=== PATIENT | female | born 1950 | race Caucasian/White ===

== ENCOUNTER 2016-12-18 05:59 | Day surgery (SDC) | payer OTHER ==
[~2016-12-18] VITALS: Ht 172.7 cm; Wt 107.1 kg
[2016-12-18] VITALS (8 sets, daily range): BP systolic 139–180; BP diastolic 46–83
--- NOTE | ~2016-12-18 | EKG ---
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
--- NOTE | ~2016-12-18 | S ---
[facility] [address] [place] [address] SURGICAL PATH RPT PROCEDURE Name: ZORAN TOMAS Room #: DEP [facility]..#: [id number] Admission: 12/18/16 Date of : 50 Discharge: 12/19/16 Report #: [id number] Path Case #: [id number] PATHOLOGY REPORT COLLECTION DATE: 12/18/2016 RECEIVED DATE: 12/19/2016 SUBMITTING PHYS: Dr. Therese Quintana OTHER PHYS: Dr. Raffi Anthony ADDENDUM REPORT (Order Date: 12/23/2016 11:48) ADDENDUM COMMENT: The immunoperoxidase stain for Helicobacter pylori is negative. (SHA:garrett; 12/23/2016) Professional services performed by [facility] at [facility] [address] [place] [address] Technical services performed by [facility] at [address] [place] [address], [address] [place] [address]. ELECTRONICALLY SIGNED BY: Marcelo Akins M.D. DATE/TIME:12/23/2016 12:47 SPECIMEN(S) RECEIVED: A.Gastric band and port B.Gastric sleeve * * * * * * * * * * * * FINAL DIAGNOSIS: A. Gastric port and band (gross diagnosis only). B. 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 (see comment) COMMENT: An immunoperoxidase stain for Helicobacter pylori will be done on block A2, and an additional report will follow. (SHA:mgr; 12/22/2016) PATHOLOGIST: Marcelo Akins M.D. REPORT ELECTRONICALLY SIGNED BY: Marcelo Akins M.D. DATE/TIME: 12/22/2016 12:55 * * * * * * * * * * * * [address] [address] SURGICAL PATH RPT PROCEDURE Name: ZORAN TOMAS Room #: DEP [facility]#: [id number] Admission: 12/18/16 Date of : 50 Discharge: 12/19/16 Report #: [id number] Path Case #: [id number] GROSS PATHOLOGY: A. The specimen is received in formalin, labeled "Zoran Tomas, gastric port and band". Received is an adjustable laparoscopic band measuring 5.1 x 5.1 x 2.1 cm with attached white tubing measuring 43.3 cm in length by 0.4 cm in diameter, and separately submitted port measuring 3.0 x 3.0 x 1.6 cm. The back of the port is inscribed with "Port-A-Cath" and "[id number]". A gross photograph is taken. Sections are not submitted. B. The specimen is received in formalin, labeled "Zoran Tomas, gastric sleeve". Received is a partial gastrectomy specimen with a stapled margin of resection measuring 22.3 x 6.1 x 3.1 cm in greatest dimensions. The serosal surface is pink-royal to pink-bazzi and glistening in appearance. Opening the specimen reveals a light royal, cerebriform-appearing mucosa with moderate architectural folds in. Several possible polyps are present ranging in size from 0.2 to 0.3 cm. The specimen is submitted representatively in cassettes B1 through B3, to include possible polyps. (CAA; 12/20/2016) CLINICAL HISTORY: Morbid obesity, LAP-BAND in place INITIAL CPT CODE(S): A; 44165 B; 36558, 41517 Professional services performed by [facility] at [facility] [address], [place] [address] Technical services performed by [employer] at [address] [place] [address], [address], [place] [address]. [facility] [place] [address] PHONE: [phone] DIRECTOR: Wellington Marina M.D. * * * END OF REPORT * * *
[~2016-12-18 05:59] MED LIST: COUMADIN 5 MG TA5 M1 PO; CRESTOR20 MG PO; DILAUDID4 MG PO; ENOXAPARIN120 MG/0.1 SUBQ; LISINOPRIL20 MG PO; MOVANTIK25 MG PO; MULTIVITAMINS PO
[2016-12-18 10:44] LABS: HEMATOCRIT 40.3 % (37.0-47.0); HEMOGLOBIN 13.1 gm/dL (12.0-15.0)
[2016-12-18 11:03] LABS: PROTIME 10.5 Seconds (9.3-11.4)
[2016-12-19 00:40] VITALS: BP 179/79
[2016-12-19 04:20] VITALS: BP 131/56
[2016-12-19 06:22] LABS: HEMATOCRIT 36.3 % (37.0-47.0); HEMOGLOBIN 11.7 gm/dL (12.0-15.0); MCH 26.8 pg (26.0-34.0); MCHC 32.1 g/dL (28.0-37.0); MCV 83.5 fL (80.0-100.0); RBC 4.34 mil/uL (4.20-5.00); RDW 14.3 % (10.5-14.5)
[2016-12-19 06:40] LABS: CALCIUM 9.1 mg/dL (8.5-10.1); CREATININE 1.1 mg/dL (0.6-1.0); POTASSIUM 4.5 mmol/L (3.5-5.1)
[2016-12-19 07:27] VITALS: BP 140/58
[2016-12-19 09:15] VITALS: BP 140/58
== END 2016-12-19 10:36 | disposition home or self-care (01) ==
LOC: TBA 05:59 → OR 05:59 → TBA 06:00 → GI 09:56 → OR 14:31 → EDSTATUS 14:55 → OR 15:03 → 5S 19:13 → 4S 12-19 00:48 → OR 12-19 10:36
PROVIDERS: Surgery
DX: E66.01 Morbid (severe) obesity due to excess calories (principal); K43.0 Incisional hernia with obstruction, without gangrene; K44.9 Diaphragmatic hernia without obstruction or gangrene; K66.0 Peritoneal adhesions (postprocedural) (postinfection); I10 Essential (primary) hypertension; E78.00 Pure hypercholesterolemia, unspecified; K21.9 Gastro-esophageal reflux disease without esophagitis; M54.5 Low back pain; E11.9 Type 2 diabetes mellitus without complications; M79.662 Pain in left lower leg; M79.661 Pain in right lower leg; M25.50 Pain in unspecified joint; R53.83 Other fatigue; Z68.35 Body mass index [BMI] 35.0-35.9, adult; Z98.890 Other specified postprocedural states; Z79.899 Other long term (current) drug therapy; Z90.710 Acquired absence of both cervix and uterus; Z90.49 Acquired absence of other specified parts of digestive tract; Z87.442 Personal history of urinary calculi; Z96.652 Presence of left artificial knee joint; Z86.718 Personal history of other venous thrombosis and embolism; Z46.51 Encounter for fitting and adjustment of gastric lap band
CPT/HCPCS: 50010; 50101; 50222; 50249; 50386; 50555; 50558; 50739; 50740; 50962; 51437; 51489; 52182; 52265; 53307; 53311; 54022; 54118; 54124; 55326; 56462; 56525; 56526; 56531; 57092; 62110; 62900; 70005

== ENCOUNTER → 2017-03-02 | Outpatient (CLI) | payer OTHER | LOC: RAD 01:02 | DX: Z12.31 Encounter for screening mammogram for malignant neoplasm of breast (principal) ==

== ENCOUNTER → 2017-10-13 | Outpatient (CLI) | payer OTHER ==
[~2017-10-13] VITALS: Ht 172.7 cm; Wt 90.7 kg
[~2017-10-13] MED LIST changes: +CARAFATE1 GM/10 ML PO; +DILAUDID 4 MG TA4 M1 PO; +ENOXAPARIN80 MG/0.1 SUBQ; +OMEPRAZOLE 20 M20 M1 PO; +XANAX 0.5 MG0.5 MG PO
--- NOTE | ~2017-10-13 | O ---
[facility] [place] [address] [place] [address] OPERATIVE REPORT Name: ZORAN CAAL [id number] Admission: 10/13/17 Attend Phys: Therese Quintana MD, Discharge: Date of : 50 Report #: [id number] THIS REPORT FOR: //name// CC: Therese Anthony DATE OF SERVICE: 10/13/2017 PREOPERATIVE DIAGNOSES: 1. Gastroesophageal reflux disease. 2. History of laparoscopic sleeve gastrectomy. 3. Type 2 diabetes mellitus. 4. Hypertension. 5. Hypercholesterolemia. 6. Morbid obesity with a body mass index of 31.47. POSTOPERATIVE DIAGNOSES: 1. Gastroesophageal reflux disease. 2. History of laparoscopic sleeve gastrectomy. 3. Type 2 diabetes mellitus. 4. Hypertension. 5. Hypercholesterolemia. 6. Morbid obesity with a body mass index of 31.47. 7. Small to moderate hiatal hernia. PROCEDURE PERFORMED: Thorough esophagogastroduodenoscopy (EGD). SURGEON: Therese Quintana M.D. SHREDDER OPERATOR: None. ANESTHESIA: Monitored anesthesia care. ESTIMATED BLOOD LOSS: None. COMPLICATIONS: None. SPECIMENS: None. INDICATIONS: The patient is a 67-year-old female who is approximately 8 months status post a laparoscopic sleeve gastrectomy with a weight loss of approximately 50 pounds thus far. Overall, the patient is feeling well; however, has had worsening GERD over the recent past that has been medically recalcitrant. The patient did receive an upper GI swallow, which showed a moderate hiatal hernia with reflux to the level of the upper esophagus and she received esophageal manometry testing showing normal esophageal motility. [facility] [place] [address] [place] [address] OPERATIVE REPORT Name: ZORAN CAAL Room #: REG [facility].#: [id number] Admission: 10/13/17 Attend Phys: Therese Quintana MD, Discharge: Date of : 50 Report #: [id number] the patient has changes of reflux with normal motility, indication was for an EGD today to complete her upper GI workup prior to proceeding with any antireflux procedure. PROCEDURE: After explaining the risks, benefits and alternatives of the procedure with the patient in detail in the preoperative holding area and obtaining written consent, the patient was brought to the endoscopy suite supine on her hospital cart. After conducting a thorough timeout procedure, verifying correct patient and procedure, the patient was given monitored anesthesia care. Once adequate anesthesia was obtained, her SCDs were hooked up to pneumatic compression device and the [employer] upper endoscope was used to intubate the oropharynx and was traversed down into the esophagus. The esophagus showed no evidence of Campuzano's changes, no hyperemia or abnormality. The scope was advanced into the gastric lumen where the pylorus was identified and intubated. The scope was advanced to the second portion of the duodenum where slow and careful withdrawal of the scope showed no evidence of duodenitis, gastritis, esophagitis, mass lesions or ulcerations. I was able to perform a retroflexion view of the scope within the gastric antrum and attempts at withdrawing this to evaluate at the gastroesophageal juncture were difficult due to her prior sleeve; however, I was able to see evidence of a small to moderate size hiatal hernia. Photodocumentation of this hiatal hernia was taken and provided to the patient and the permanent medical record. The scope was straightened out. The stomach was desufflated. The scope was removed via the oropharynx, passed off the field completing the procedure. At the end of the procedure, all instrument, needle and sponge counts were correct. The patient tolerated the procedure without incident, was awakened in the endoscopy suite and transitioned to the recovery room in stable condition with no apparent complications. <ELECTRONICALLY SIGNED> By: Therese Quintana MD, FACS 10/14/17 1331 1213 1314 Therese Quintana MD, FACS /nt
== END | disposition home or self-care (01) ==
LOC: GI 06:24
DX: K21.9 Gastro-esophageal reflux disease without esophagitis (principal); Z90.3 Acquired absence of stomach [part of]; E11.9 Type 2 diabetes mellitus without complications; I10 Essential (primary) hypertension; E66.01 Morbid (severe) obesity due to excess calories; Z68.31 Body mass index [BMI] 31.0-31.9, adult; E78.00 Pure hypercholesterolemia, unspecified; K44.9 Diaphragmatic hernia without obstruction or gangrene; R63.4 Abnormal weight loss; Z98.890 Other specified postprocedural states; Z90.710 Acquired absence of both cervix and uterus; Z90.49 Acquired absence of other specified parts of digestive tract; G89.29 Other chronic pain
CPT/HCPCS: 62110; 62900